=== PATIENT | female | born 1945 | race Caucasian/White ===

== ENCOUNTER 2018-03-30 06:51 | Inpatient (IN) | payer BC, OTHER ==
[~2018-03-30 06:51] MED LIST: FAMOTIDINE 20MG TABLET PO ONE; MECLIZINE 25 MG TABLET PO ONE; METOCLOPRAMIDE 10 MG TABLET PO ONE; VANCOMYCIN HCL 1,000 MG in DEXTROSE 5 % IN WATER 250 ML IVPB ONE
[2018-03-30 07:48] LABS: ABO GROUP A; ANTIBODY SCREEN NEGATIVE (NEGATIVE); RH TYPE POSITIVE
[2018-03-30] MEDS ORDERED: HYDROCODONE/APAP 10/325 TABLET PO PRN (10:46)
[2018-03-30] MEDS ORDERED: MAGNESIUM HYDROXIDE 30 ML UDC PO PRN (10:46)
[2018-03-30] MEDS ORDERED: TRAMADOL HCL 50 MG TABLET PO PRN (10:46)
[2018-03-30] MEDS ORDERED: ACETAMINOPHEN 325 MG TAB PO PRN (10:46)
[2018-03-30] MEDS ORDERED: ACETAMINOPHEN W/ CODEINE 300MG/60MG TABLET PO PRN ×2 (10:46)
[2018-03-30] MEDS ORDERED: ZOLPIDEM TARTRATE 5 MG TABLET PO PRN (10:46)
[2018-03-30] MEDS ORDERED: ONDANSETRON HCL IV 4 MG/2 ML VIAL IVP PRN (10:46)
[2018-03-30] MEDS ORDERED: HYDROMORPHONE HCL 2 MG/ML VIAL IM PRN (10:46)
[2018-03-30] MEDS ORDERED: BISACODYL 10 MG SUPP RC PRN (10:46)
[2018-03-30] MEDS ORDERED: NALOXONE 0.4 MG/1 ML VIAL IVP PRN (10:46)
[2018-03-30] MEDS ORDERED: AL HYDROX/MAG HYDROX 30ML UD PO PRN (10:46)
[2018-03-30] MEDS ORDERED: ACETAMINOPHEN W/ CODEINE 300MG/30MG TABLET PO PRN (10:46)
[2018-03-30] MEDS ORDERED: CYCLOBENZAPRINE 10MG TABLET PO PRN (11:28)
[2018-03-30] MEDS: ONDANSETRON HCL IV 4 MG/2 ML VIAL IVP ONE ×3 (13:46→17:02)
[2018-03-30] MEDS ORDERED: PROPOFOL 10 MG/ML VIAL IV ONE (14:20)
[2018-03-30] MEDS ORDERED: BUPIVACAINE 0.5% W/EPI MPF 30 ML VIAL IVP ONE (14:20)
[2018-03-30] MEDS ORDERED: ONDANSETRON HCL IV 4 MG/2 ML VIAL IVP ONE (14:20)
[2018-03-30] MEDS ORDERED: KETOROLAC 30 MG/ML VIAL IVP ONE (14:20)
[2018-03-30] MEDS ORDERED: FENTANYL PF 100MCG/2ML VIAL IV ONE (14:20)
[2018-03-30] MEDS ORDERED: MIDAZOLAM HCL 2MG/2ML VIAL IV ONE (14:20)
[2018-03-30] MEDS ORDERED: EPHEDRINE SULFATE 50 MG/ML ML IV ONE (14:20)
[2018-03-30] MEDS ORDERED: TRANEXAMIC ACID 1,000 MG/10 ML ML IV ONE (14:20)
[2018-03-30] MEDS ORDERED: SCOPOLAMINE 1 PATCH TDSY TD ONE (14:20)
[2018-03-30] MEDS ORDERED: DIPHENHYDRAMINE HCL 50 MG/ML VIAL IVP ONE (14:20)
[2018-03-30] MEDS ORDERED: HYDROMORPHONE HCL 2 MG/ML VIAL IV ONE (14:20)
[2018-03-30] MEDS: DIPHENHYDRAMINE HCL 25 MG CAPSULE PO PRN ×2 (15:00→21:29)
--- NOTE | 2018-03-30 15:10 | Rehab Evaluation ---
Patient Information - Patient Information Diagnosis: L knee DJD Ordered Treatment: PT Evaluate and Treat Status: Initial Evaluation Surgery: Yes Date of Surgery: 03/30/18 Past Medical/Surgical Hx: PAST MEDICAL/SURGICAL HISTORY Past Surgical History pacemaker tonsils appy margareth cscopes epidurals PMH - Respiratory Hx Respiratory Disorders Yes Hx Pneumonia Yes: at age 20 Hx Sleep Apnea Yes Hx of CPAP Yes Hx of SOB Yes: with exertion stairs Comment: "collapsed lung" age 20 PMH - Cardiovascular Hx Cardiovascular Disorders Yes Hx Abnormal EKG Yes Hx Edema Yes Hx Hypertension Yes: on meds good control Hx Irregular Heartbeat Yes: a fib.pt had pacemaker put in pt was having 6 sec pauses Hx Pacemaker/Defibrillator Yes: pacer 2017 Exercise Tolerance Fair PMH - Neuro Hx Neurological Disorders Yes Hx Syncope Yes: before pacer Comment: balance is off PMH - GI Hx Gastrointestinal Disorders Yes Hx Abdominal Pain Yes Hx Gastroesophageal Reflux Yes Hx Irritable Bowel Yes Hx Liver Disease Yes: fatty liver PMH - Hx Genitourinary Disorders Yes Hx Bladder Problem Yes: frequency on meds to help this Hx Renal Disease Yes: stage 3 renal disease low protein diet PMH - Endocrine Hx Endocrine Disorders Yes Hx Diabetes Yes: dx'd Hx Thyroid Disease Yes: thyroid nodule 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 The patient reports she has a bed on the first floor but the bathroom she will use to shower is on the second floor. The patient has a flight of 14 stairs to the second story. The patient's bathroom is equipped with a walk in shower with grab bars and an elevated toilet seat with grab bars. The patient's walk in shower has a shower bench. The patient has a standard walker and a 4 point cane. The patient's family was present for intitial evaluation.) Precautions: [place], Fall, Other (WBAT on the L LE.) - Time With Patient Total Time Spent With Patient (Min): 30 Treatment Procedures: Detail (Initial Evaluation, gait training) Subjective Information - Subjective Information Per Patient (The patient had complaints of nausea and itching. The patient vomitted x 2. The patient had no complaints of pain.) Objective Data - Mental Status Patient Orientation: Oriented x3 - Visual Perception Appears within normal limits for therapeutic activities - ROM Not within normal limits (The patient's L knee AROM was limited secondary to s/ p surgery.) - Strength/Tone Not within normal limits (The patient's L LE strength was not formally tested secondary to status post surgery, however her strength was functional ( the patient was able to complete a SLR). The patient's R LE strength was generally 4+ to 5/5.) - Bed Mobility Independent (The patient was independent with supine to and from sit transfer and scooting up in bed.) - Balance Balance Sitting: Good Balance Standing: Fair (The patient was unsteady at times when ambulating.) - Sensation Intact - Gait Detail (The patient ambulated with standard walker WBAT on the L LE with CG of 1 for safety and verbal cues for proper placement of walker a distance of 40 feet x 1.) Therapy Assessment - Therapy Assessment Detail (The patient was independent with transfer and bed mobility and required CG for safety with ambulation due to occasional unsteadiness. Feel the patient will progress well.) Patient Education - Patient Education Teaching Topic: Exercise/Activity (The patient completed LE strengthening exercises: gluteal sets, ankle pumps, SLR, heel slides, hamstring and quad sets. ) Response: Return Demonstration Teaching Method: Demonstration, Handout Teaching Recipient: Patient Barriers To Learning: Age Related Problem List - Problem List Physical Therapy Problem List: Detail (1) Decreased L knee AROM and strength as to be expected following surgery. 2) CG with ambulation with standard walker 3) Non ambulatory on stairs) Goals - Goals Physical Therapy Goals: 1) The patient will be independent with ambulation with standard walker WBAT on the L , household distances. 2)The patient will ambulate on stairs with supervison for safety WBAT on the L LE. Prognosis - Prognosis Good Plan - Plan Physical Therapy Plan: PT 1-2 times a day until inpatient PT goals are met for gait training on levels and stairs.
--- NOTE | 2018-03-30 16:04 | Operative Note ---
DATE: 03/30/2018 PREOPERATIVE DIAGNOSIS: END-STAGE ARTHROSIS OF THE LEFT KNEE. POSTOPERATIVE DIAGNOSIS: END-STAGE ARTHROSIS OF THE LEFT KNEE. PROCEDURE: Cemented left total knee arthroplasty using Sotelo [employer] Nephew Ghazala II components with a size 4 [place] Chrome femur, a size 3 stemmed tibial base plate, a 9 mm lipped tibial insert with a 32 all-plastic patella. STAFF SURGEON: MOOK VINES M.D. ANESTHESIA: SPINAL. PREPARATION: CHLORAPREP. INDIVIDUAL CONSIDERATIONS: NONE. PROCEDURE: The patient was taken to the Operating Room and placed supine on the operating table. She had a successful induction of a spinal anesthetic. Her left lower extremity was prepped and draped in the usual fashion. The limb was elevated and the tourniquet was inflated to 250 mmHg. The patient had a midline approach to the knee. Sharp dissection was carried down through the skin and subcutaneous tissue. Small veins were coagulated with a Bovie. A medial arthrotomy was performed. The patella was everted and the knee was flexed. She had exposed bone in the lateral and patellofemoral compartments. Fat pad was resected, ACL was sacrificed, provisional anterior meniscectomies were performed, and the capsule was released from the medial proximal tibia. The initial femoral pilot plant operator hole was then made freehand. The intramedullary femoral cutting jig was placed. It was cut in 7 degrees of valgus and adjusted for rotation and secured with pins for a 10 mm resection. The initial transverse cut was then made. Skin guide was placed in the anterior and posterior pilot plant operator holes and we found that a size 4 would be appropriate. The anterior and posterior cuts followed by chamfer cuts were made, osteophytes removed, and a size 4 trial was placed and found to fit well. The tibia was brought forward and the remainder of the meniscal remnants were removed with a Bovie. The extra-articular tibial cutting jig was placed and it was cut in neutral with a 3 degree AP slope. Care was taken to adjust for rotation and flexion. It was set for a 9 mm resection, keyed off the high medial side, and secured with pins. When cutting the tibia, care was taken to preserve the PCL insertion on the tibia. Osteophytes were removed and I found that I could fit a size 4 baseplate trial, it adjusted for rotation, and secured with pins. With a 9 mm trial and femoral trial, there was excellent motion and stability. Ligamentous balance, rotation, alignment, and patellofemoral tracking were normal even at this early state. The triflange tibial stamp was impacted and the femoral pilot plant operator holes were impacted, and these trial components were removed. The patella was cut freehand taking roughly 9 mm of bone. I was easily able to get a 32 mm patella and the three pilot plant operator holes were drilled. The tourniquet was let down briefly to get bleeders posteriorly then placed back up again. The knee was then thoroughly irrigated out with pulsatile Betadine and saline to remove any visual or palpable debris. Bony surfaces were then dried. A size 4 stem tibial baseplate was cemented into place, followed by impaction of the 9 mm lipped tibial insert, followed by cementing the size 4 femur component, followed by cementing in a 32 mm all-plastic patella. Implant surfaces were compressed, excess cement was removed, and after the cement had set, there was excellent motion and stability. Ligamentous balance, rotation alignment, and patellofemoral tracking were normal. No lateral release was required. The tourniquet was let down and hemostasis was obtained with a Bovie. After irrigation, the skin, subcut, and periosteum were infiltrated with 30 mL of 0.50 % Marcaine with Epinephrine. The capsule was then closed with a running #2 Quill , subcut was closed in layers with running #0 Quill, and the skin was closed with carlos. The patient had a gram of Tranexamic Acid IV preoperatively. I mixed a gram of Tranexamic Acid with 30 mL of saline and injected it into the knee through a sterile 18-gauge needle, and a sterile [place] compressive Aquacel -type dressing was applied. The patient tolerated the procedure well. Needle and sponge counts were correct. Estimated blood loss was minimal and she was taken back to the Recovery Room in good condition. There were no complications. JOB NUMBER: [id number] [facility]
[2018-03-30] MEDS ORDERED: PROMETHAZINE HCL 12.5 MG in 0.9 % SODIUM CHLORIDE 100ML 100 ML IVPB ONE (17:00)
[2018-03-30] MEDS: POTASSIUM CHLORIDE/D5-0.9%NACL 20 MEQ/1,000 ML BAG IV SCH ×2 (17:03→19:43)
[2018-03-30] MEDS: VANCOMYCIN HCL 1,000 MG in DEXTROSE 5 % IN WATER 250 ML IVPB SCH ×2 (19:45)
[2018-03-30] MEDS: OXYBUTYNIN CHLORIDE 5MG TABLET PO SCH (21:21)
[2018-03-30] MEDS: DOCUSATE SODIUM 100 MG CAPSULE PO SCH (21:21)
[2018-03-30] MEDS: DICYCLOMINE HCL 10 MG CAPSULE PO SCH (21:22)
[2018-03-30] MEDS: FAMOTIDINE 20MG TABLET PO SCH (21:22)
[2018-03-30] MEDS: METOPROLOL TART 50 MG TABLET PO SCH (21:29)
[2018-03-30] MEDS: HYDROCODONE/APAP 10/325 TABLET PO PRN (21:29)
[2018-03-30] MEDS ORDERED: PRAMIPEXOLE DI-HCL 0.25 MG TABLET PO SCH (22:00)
[2018-03-30] MEDS ORDERED: ATORVASTATIN 20 MG TABLET PO SCH (22:00)
[2018-03-31] MEDS: HYDROCODONE/APAP 10/325 TABLET PO PRN ×3 (01:40→10:55)
[2018-03-31] MEDS: POTASSIUM CHLORIDE/D5-0.9%NACL 20 MEQ/1,000 ML BAG IV SCH ×2 (03:07→12:41)
[2018-03-31 06:45] LABS: HEMATOCRIT 36.4 % (35.0-47.0); HEMOGLOBIN 11.5 gm/dl (11.6-16.0)
[2018-03-31 06:58] LABS: CREATININE 1.7 mg/dL (0.5-0.9)
[2018-03-31] MEDS ORDERED: LEVOTHYROXINE SODIUM 175 MCG TABLET PO SCH (07:00)
[2018-03-31] MEDS ORDERED: METFORMIN 500 MG TABLET PO SCH (08:00)
[2018-03-31] MEDS: VANCOMYCIN HCL 1,000 MG in DEXTROSE 5 % IN WATER 250 ML IVPB SCH ×2 (08:26)
[2018-03-31] MEDS: OXYBUTYNIN CHLORIDE 5MG TABLET PO SCH (09:52)
[2018-03-31] MEDS: DOCUSATE SODIUM 100 MG CAPSULE PO SCH (09:52)
[2018-03-31] MEDS: DICYCLOMINE HCL 10 MG CAPSULE PO SCH (09:52)
[2018-03-31] MEDS: METOPROLOL TART 50 MG TABLET PO SCH (09:53)
[2018-03-31] MEDS: FAMOTIDINE 20MG TABLET PO SCH (09:54)
[2018-03-31] MEDS: DIPHENHYDRAMINE HCL 25 MG CAPSULE PO PRN (09:54)
[2018-03-31] MEDS ORDERED: MAGNESIUM OXIDE 400 MG TABLET PO SCH (10:00)
[2018-03-31] MEDS ORDERED: APIXABAN 5MG TABLET PO SCH (10:00)
[2018-03-31] MEDS ORDERED: FERROUS SULFATE 325 MG TAB PO SCH (10:00)
[2018-03-31] MEDS ORDERED: CHOLECALCIFEROL 1,000 UNIT TABLET PO SCH (10:00)
[2018-03-31] MEDS ORDERED: AMIODARONE HCL 200 MG TABLET PO SCH (10:00)
--- NOTE | 2018-03-31 11:50 | Physical Therapy Tx Note ---
Physical Therapy Tx Note - Treatment Note Tolerated: Good Total Time Spent With Patient: 25 Physical Therapy Tx Note: Detail (The patient ambulated 60 feet x 1 with standard walker with occasional verbal cues to not ambulate too far into walker. The patient ambulated on 3 stairs with use of railing and folded walker with supervison for safety. The patient declined completing a flight of stairs and stated she would sponge bath at home for a few days. The patient's was present during treatment and felt comfortable guarding on the patient on the stairs. The patient's HEP was reviewed including: heel slides, quad sets, gluteal sets, hamstring sets, SLR and ankle pumps. The patient completed all inpatient goals.) Physical Therapy Problem List: Detail (1) Decreased L knee AROM and strength as to be expected following surgery. 2) CG with ambulation with standard walker 3) Non ambulatory on stairs) Physical Therapy Goals: 1) The patient will be independent with ambulation with standard walker WBAT on the L , household distances MET. 2)The patient will ambulate on stairs with supervison for safety WBAT on the L LE. MET Prognosis: Good Physical Therapy Plan: The patient completed all inpatient goals and is discharged from inpatient PT. The patient is to receive Home PT to assess the patient's safety at home and with ambulation on a flight of stairs.
--- NOTE | 2018-03-31 12:31 | Rehab Evaluation ---
Patient Information - Patient Information Diagnosis: L knee DJD Ordered Treatment: OT Evaluate and Treat Status: Initial Evaluation (OT student (Eloisa Gillespie) also assisted in initial evaluation, supervised by OTRL) Surgery: Yes Date of Surgery: 03/30/18 Past Medical/Surgical Hx: PAST MEDICAL/SURGICAL HISTORY Past Surgical History pacemaker tonsils appy margareth cscopes epidurals PMH - Respiratory Hx Respiratory Disorders Yes Hx Pneumonia Yes: at age 20 Hx Sleep Apnea Yes Hx of CPAP Yes Hx of SOB Yes: with exertion stairs Comment: "collapsed lung" age 20 PMH - Cardiovascular Hx Cardiovascular Disorders Yes Hx Abnormal EKG Yes Hx Edema Yes Hx Hypertension Yes: on meds good control Hx Irregular Heartbeat Yes: a fib.pt had pacemaker put in pt was having 6 sec pauses Hx Pacemaker/Defibrillator Yes: pacer 2017 Exercise Tolerance Fair PMH - Neuro Hx Neurological Disorders Yes Hx Syncope Yes: before pacer Comment: balance is off PMH - GI Hx Gastrointestinal Disorders Yes Hx Abdominal Pain Yes Hx Gastroesophageal Reflux Yes Hx Irritable Bowel Yes Hx Liver Disease Yes: fatty liver PMH - Hx Genitourinary Disorders Yes Hx Bladder Problem Yes: frequency on meds to help this Hx Renal Disease Yes: stage 3 renal disease low protein diet PMH - Endocrine Hx Endocrine Disorders Yes Hx Diabetes Yes: dx'd Hx Thyroid Disease Yes: thyroid nodule 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 The patient reports she has a bed on the first floor but the bathroom she will use to shower is on the second floor. The patient has a flight of 14 stairs to the second story with railing on right asending. The patient's bathroom is equipped with a walk in shower with grab bars, built in bench, and HH shower head. Bathroom also has an elevated toilet with 3-in-1 commode and grab bars. The patient has a standard walker, 4 point cane, and facilities specialist. The patient's spouse was present for intitial evaluation. Pt's son also lives with her, and can assist if needed.) Precautions: [place], Fall, Other (WBAT on the L LE.) - Time With Patient Total Time Spent With Patient (Min): 45 Subjective Information - Subjective Information Per Patient (Pt stated her LLE "feels heavy".) Objective Data - Pain Pain Present: Yes (2 or 3/10 at rest) - Mental Status Patient Orientation: Oriented x3 (Pt. may have been under influence of medication side effects. Spouse reported cognition of pt. is not typical. Pt required simple step directions and frequent repetition for comprehension.) - Visual Perception Appears within normal limits for therapeutic activities - ROM Within normal limits (Bilateral shoulder flexion lacking approximately 30 degrees but still WFL. All other BUE AROM WNL.) - Strength/Tone Not within normal limits (MMT: Left triceps 3+/5 and Right triceps 4-/5. Left shoulder Abd. 4/5 Right shoulder Abd. 4+/5. All other BUE MMT 4+/5.) - Coordination Appears within normal limits for therapeutic activities - Bed Mobility Independent (Ind. with HOB raised. Pt. reported she may sleep in a recliner until feels comfortable enough to sleep in her bed.) - Transfers Independent (Education provided to pt on hand placement during sit<>stand transfers and required mod repetitions/VC for safety. CGA sit<>stand toilet transfer from standard height with grab bar.) - Balance Balance Sitting: Good Balance Standing: Fair - Sensation Intact (Pt reported having Raynauds in both hands and numbness in B index finger. Light touch in tact BUE fingertips.) - ADL's/IADL's Detail (Toileting re-training I for transfer and clothing management on standard toilet but CGA during sit<>stand. Provided education on adaptive dressing techniques and use of facilities specialist with LB dressing. UB/LB dressing re- training with facilities specialist NV with mod VC to polina pants safely and I with donning pullover shirt. Pt. donned B socks with use of facilities specialist with min VC's (educ. provided).) Therapy Assessment - Therapy Assessment Detail (In-pt. OT services not recommended at this time. Pt. would benefit from home OT evaluation to assess environmental set-up and potential modifications. Spouse expressed concern for pt's ability to transfer from some low surfaces in home. Pt. may need to sponge bath until she feels strong/safe enough to manage the stairs up to the bathroom where the shower is located. Pt. would benefit from use of facilities specialist (which pt. has, and educ. was provided) to maximize safety and Ind. with ADL's. Pt. has a positive support system, and assistance if needed for household management from and son.) Patient Education - Patient Education Teaching Topic: Equipment Use Response: Return Demonstration, Reinforcement Needed, Verbalize Understanding Teaching Method: Discussion, Demonstration Teaching Recipient: Patient, Significant Other () Barriers To Learning: Other (cognition may have been effected by medications ( STM, comprehension)) Problem List - Problem List Physical Therapy Problem List: Detail (1) Decreased L knee AROM and strength as to be expected following surgery. 2) CG with ambulation with standard walker 3) Non ambulatory on stairs) Goals - Goals Physical Therapy Goals: 1) The patient will be independent with ambulation with standard walker WBAT on the L , household distances MET. 2)The patient will ambulate on stairs with supervison for safety WBAT on the L LE. MET Prognosis - Prognosis Good Plan - Plan Physical Therapy Plan: The patient completed all inpatient goals and is discharged from inpatient PT. The patient is to receive Home PT to assess the patient's safety at home and with ambulation on a flight of stairs. Occupational Therapy Plan: D/C from in-pt. OT services. Educ. was provided to call rehab dept. if pt has Q's after returning home.
--- NOTE | 2018-03-31 19:39 | Discharge Summary ---
DATE OF ADMISSION: 03/30/2018 DATE OF DISCHARGE: 03/31/2018 DATE OF SURGERY: 03/30/2018 HISTORY: Olivia is a delightful 73-year-old female who presents with end-stage arthrosis of her left knee. She was admitted after total knee arthroplasty. Postoperatively, she did well. Her hospital course was unremarkable. DISCHARGE INSTRUCTIONS: The plan is to discharge her home in the care of her family. Home PT and Visiting Nurse has been arranged. She will take [place] for pain. She normally takes Eliquis, so she will continue that for a-fib but that will also cover her for DVT prophylaxis. She will follow-up in my office in four weeks. Her Visiting Nurse will remove her sutures in two weeks. FINAL DIAGNOSIS/PRIMARY DIAGNOSIS: END-STAGE ARTHROSIS OF THE LEFT KNEE. OPERATIONS AND PROCEDURES: CEMENTED LEFT TOTAL KNEE ARTHROPLASTY. JOB NUMBER: [id number] MTDD
== END 2018-03-31 14:30 | disposition home health service (06) | DRG 470 ==
LOC: MEDSURG 06:51
PROVIDERS: ADMIT Orthopaedic Surgery; ATTEND Orthopaedic Surgery
PROC: 0SRD069 Replacement of Left Knee Joint with Oxidized Zirconium on Polyethylene Synthetic Substitute, Cemented, Open Approach (ICD-10-PCS; principal; 2018-03-30 09:00)
DX: M17.12 Unilateral primary osteoarthritis, left knee (principal); I48.91 Unspecified atrial fibrillation; Z79.01 Long term (current) use of anticoagulants; E11.9 Type 2 diabetes mellitus without complications; Z79.84 Long term (current) use of oral hypoglycemic drugs; I10 Essential (primary) hypertension; E78.00 Pure hypercholesterolemia, unspecified
CPT/HCPCS: 80048; 85014; 85018; 86850; 86900; 86901; 97110; 97530; C1776; J1200; J1885; J2405; J2550; J3480; J7060